=== PATIENT | female | born 1930 | race Caucasian/White ===

== ENCOUNTER 2018-06-18 18:53 | Observation (INO) ==
[2018-06-18] MEDS ORDERED: SALINE FLUSH 10ml SYRINGE IVF PRN (19:25)
--- NOTE | 2018-06-18 19:49 | Emergency Department Report ---
Weakness HPI - General Chief complaint: Recheck/Abnormal Lab/Rx Stated complaint: Low hemoglobin Time Seen by Provider: 06/18/18 19:25 Source: patient, family, RN notes reviewed, old records reviewed Mode of arrival: ambulatory Limitations: no limitations - History of Present Illness HPI Narrative: 87yo woman is presented to the ER for evaluation of weakness. Pt was seen recently by her PCM and labs were ordered showing anemia (after a shoulder repair with ortho). She had a repeat drawn today, in anticipation of seeing her clothes presser; because it was lower, pt was referred to the ER for further evaluation. Pt has no c/o. Denies hematemesis/hematochezia. Is taking xarelto. Complaint: generalized weakness, lack of energy Onset (ago): hour(s) Duration: constant Location: generalized - Related Data Home Medications Medication Instructions Recorded Confirmed Nitroglycerin 0.4 mg SL Q5MIN PRN #0 06/24/11 06/18/18 Chlorthalidone 12.5 mg PO DAILY #0 09/23/16 06/18/18 Atorvastatin [Lipitor] 20 mg PO DAILY 11/05/17 06/18/18 Calcium Carbonate/Vitamin D3 1 tab PO BID 11/05/17 06/18/18 [Calcium 600 + Vit D Tablet] Levocetirizine [Xyzal] 5 mg PO DAILY 11/05/17 06/18/18 Lisinopril [Prinivil] 2.5 mg PO DAILY 11/05/17 06/18/18 Magnesium Oxide [Magox] 400 mg PO BID 11/05/17 06/18/18 Metoprolol Tartrate [Lopressor] 12.5 mg PO BID 11/05/17 06/18/18 Multivitamin [One Daily] 1 each PO DAILY 11/05/17 06/18/18 Rivaroxaban [Xarelto] 20 mg PO PM 11/05/17 06/18/18 Trazodone [Desyrel] 50 mg PO HS 11/05/17 06/18/18 EPINEPHrine [Epipen 2-Tayo] 1 syringe SQ PRN 02/06/18 06/18/18 Acetaminophen [Tylenol Arthritis] 650 - 1,300 mg PO Q8H PRN 06/18/18 06/18/18 Cholecalciferol (Vitamin D3) 2,000 unit PO BID 06/18/18 06/18/18 [Vitamin D3] Citalopram [Celexa] 40 mg PO DAILY 06/18/18 06/18/18 Docusate Sodium 100 mg PO DAILY 06/18/18 06/18/18 Lactobacillus [Culturelle] 1 cap PO DAILY 06/18/18 06/18/18 Levothyroxine Tab [Synthroid] 75 mcg PO ACB 06/18/18 06/18/18 Omeprazole [Prilosec] 20 mg PO DAILY 06/18/18 06/18/18 Tramadol [Ultram] 50 mg PO Q8H PRN 06/18/18 06/18/18 Allergies Allergy/AdvReac Type Severity Reaction Status Date / Time iodine Allergy Severe HIVES Verified 06/18/18 20:07 Penicillins Allergy Intermediate HIVES Verified 06/18/18 20:07 acetaminophen [From [place]] Allergy Unknown Verified 06/18/18 20:07 hydrocodone [From [place]] Allergy Unknown Verified 06/18/18 20:07 Iodinated Contrast- Oral and Allergy Unknown Verified 06/18/18 20:07 IV Dye nut - unspecified Allergy Unknown Verified 06/18/18 20:07 HAZELNUTS Allergy Unknown CANNOT Uncoded 03/11/18 14:26 BREATH WATERMELLON Allergy Unknown CANNOT Uncoded 03/11/18 14:26 BREATH Review of Systems All systems: reviewed and negative except as stated Constitutional: Reports: as per HPI, weakness. Denies: fever, chills, weight change, night sweats Hematological/Lymphatic: Reports: as per HPI, other (Lower-extremity swelling) [facility] Patient Stated Medical History Cataracts Yes Other HEENT Yes: wears glasses Hypertension Yes Diabetes Mellitus Type 2 Yes Anemia Yes Other Hematologic Yes: taking xeralto Osteoarthritis Yes MRSA Yes: face [facility] Medical History (Last Reviewed 03/11/18 @ 16:50 by GARETH Breen) Kidney disease (Chronic Medical) Type 2 diabetes mellitus (Chronic Medical) MRSA (methicillin resistant staph aureus) culture positive (Chronic Medical) Arthritis (Chronic Medical) Heart disease (Chronic Medical) Pacemaker (Chronic Medical) Thyroid disease (Chronic Medical) Surgical History: Lt shoulder fx 3-24-18. Rt shoulder fx & repair Family History: Family History (Last Reviewed 03/11/18 @ 16:50 by GARETH Breen) Mother Stroke Father Stroke Heart attack - Social History Smoking status: Never smoker Current occupational status: retired Physical Exam - Limitations Limitations: no limitations - General General appearance: alert, in no apparent distress, obese - Normal Exams: Head:: Normocephalic without trauma Eyes:: Pupils are PERRLA w/ EOMI, No scleral icterus, irritation, or foreign bodies noted ENMT:: No facial trauma, nasal exudates, pharyngeal erythema, or exudates are noted Neck:: Full range of motion, without adenopathy Lymphatic:: No lymphadenopathy Musculoskeletal:: No tenderness, or deformity noted Integumentary:: No rashes, hives, or bruising noted Neurological:: Patient is alert, and oriented, cranial nerves, motor/sensory/ cerebellar, exams w/o gross deficits Psychiatric:: Patient exhibits, appropriate attention - Chest Chest inspection: Present: normal inspection, symmetric chest wall rise. Absent : tenderness, rash - Respiratory Respiratory exam: Present: normal lung sounds bilaterally. Absent: respiratory distress, wheezes, stridor, prolonged expiratory phase, crackles - Cardiovascular Cardiovascular exam: Present: regular rate, normal rhythm, systolic murmur. Absent: diastolic murmur, rubs, gallop, clicks - Abdominal Exam Abdominal exam: Present: soft, normal bowel sounds. Absent: distention, tenderness, guarding, rebound, rigidity - Extremities Exam Extremities exam: Present: full ROM, normal capillary refill, pedal edema (B/l; improved with elevation and diuretic). Absent: normal inspection, tenderness Course - Consultations Consultation #1: [place] Telemed: Will admit for overnight obs and txfusion of 1unit PRBCs for h/o CAD and stenting. Time: 20:41 Vital Signs Temperature 97.9 F 06/18/18 19:15 Pulse Rate 64 06/18/18 19:15 Respiratory Rate 20 06/18/18 19:15 Blood Pressure 115/58 06/18/18 19:15 Pulse Oximetry 93 06/18/18 19:15 Temperature 97.9 F 06/18/18 19:15 Pulse Rate 64 06/18/18 19:15 Respiratory Rate 20 06/18/18 19:15 Blood Pressure 115/58 06/18/18 19:15 Pulse Oximetry 93 06/18/18 19:15 Weakness - MDM Narrative Medical decision making narrative: Pt with low H/H. H/o CAD and stent. Tele-hospitalist will admit overnight for 1unit PRBC. - Differential Diagnosis Differential diagnosis: Likely: acute myocardial infarction, anemia, hypoglycemia, hypothyroidism, dehydration. Unlikely: rhabdomyolysis, sepsis - Medical Records Attestation: I reviewed the patient's medical records. - Lab Data Attestation: I reviewed the patient's lab results. Result diagrams: 06/18/18 19:39 06/18/18 19:39 Lab Results 06/18/18 06/18/18 06/18/18 Range/Units 19:39 19:39 19:39 WBC 9.5 (4.5-11.0) T/MM3 RBC 3.07 L (4.00-5.20) M/MM3 Hgb 7.8 L (12-16) GM/DL Hct 25.8 L (36-46) % MCV 84.0 (80-100) UM3 MCH 25.4 L (26-34) UUG MCHC 30.2 L (31-37) GM/DL RDW Std Deviation 46.9 (36.9-50.2) FL Plt Count 352 (130-400) T/MM3 MPV 10.0 (9.4-12.4) UM3 Neutrophils % (Manual) 65.0 (33-66) % Lymphocytes % (Manual) 24.0 (23-45) % Reactive Lymphs % 1.0 H (0-0) % Monocytes % (Manual) 5.0 (0-9.0) % Eosinophils % (Manual) 4.0 (0-4) % Myelocytes % 1.0 H (0-0) % Neutrophils # (Manual) 6.2 (1.8-7.7) T/MM3 Lymphocytes # (Manual) 2.3 (1-4.8) T/MM3 Abs React Lymphs (Man) 0.1 H (0-0) T/MM3 Monocytes # (Manual) 0.5 (0-0.8) T/MM3 Eosinophils # (Manual) 0.4 (0-0.5) T/MM3 Myelocytes # 0.1 T/MM3 Polychromasia 1+ Poikilocytosis 1+ Anisocytosis 1+ RBC Morph Comment Abnormal INR 1.72 H (0.92-1.18) APTT 32.1 (24-36) SEC Turbidity < 20 (0-20) Sodium 142 (136-146) MEQ/L Potassium 4.6 (3.6-5) MEQ/L Chloride 107 (98-107) MEQ/L Carbon Dioxide 25 (22-30) MEQ/L Anion Gap 10 (5-15) meq/L BUN 38.0 H (7-17) MG/DL Creatinine 1.4 H D (0.7-1.2) mg/dL Estimated Creat Clear 28 (>50) mL/min GFR Calculation 36 (>60) mL/min BUN/Creatinine Ratio 27 H (6-26) RATIO Glucose 148 H (65-110) MG/DL Calculated Osmolality 285 H (261-280) MOSM/KG Calcium 9.3 (8.4-10.2) MG/DL Total Bilirubin 0.50 (0.20-1.30) MG/DL Icterus Index < 2 (0-7) AST 25 (14-36) U/L ALT 13 (1-35) U/L Alkaline Phosphatase 73 (38-126) U/L Troponin I < 0.012 (0-0.12) ng/ml Total Protein 6.8 (6.3-8.2) g/dL Albumin 3.9 (3.5-5.0) g/dL Globulin 2.9 (2.4-3.6) G/DL Albumin/Globulin Ratio 1.3 (1.1-2.2) RATIO Specimen Hemolysis 21 (0-25) Blood Type Antibody Screen 06/18/18 Range/Units 19:39 WBC (4.5-11.0) T/MM3 RBC (4.00-5.20) M/MM3 Hgb (12-16) GM/DL Hct (36-46) % MCV (80-100) UM3 MCH (26-34) UUG MCHC (31-37) GM/DL RDW Std Deviation (36.9-50.2) FL Plt Count (130-400) T/MM3 MPV (9.4-12.4) UM3 Neutrophils % (Manual) (33-66) % Lymphocytes % (Manual) (23-45) % Reactive Lymphs % (0-0) % Monocytes % (Manual) (0-9.0) % Eosinophils % (Manual) (0-4) % Myelocytes % (0-0) % Neutrophils # (Manual) (1.8-7.7) T/MM3 Lymphocytes # (Manual) (1-4.8) T/MM3 Abs React Lymphs (Man) (0-0) T/MM3 Monocytes # (Manual) (0-0.8) T/MM3 Eosinophils # (Manual) (0-0.5) T/MM3 Myelocytes # T/MM3 Polychromasia Poikilocytosis Anisocytosis RBC Morph Comment INR (0.92-1.18) APTT (24-36) SEC Turbidity (0-20) Sodium (136-146) MEQ/L Potassium (3.6-5) MEQ/L Chloride (98-107) MEQ/L Carbon Dioxide (22-30) MEQ/L Anion Gap (5-15) meq/L BUN (7-17) MG/DL Creatinine (0.7-1.2) mg/dL Estimated Creat Clear (>50) mL/min GFR Calculation (>60) mL/min BUN/Creatinine Ratio (6-26) RATIO Glucose (65-110) MG/DL Calculated Osmolality (261-280) MOSM/KG Calcium (8.4-10.2) MG/DL Total Bilirubin (0.20-1.30) MG/DL Icterus Index (0-7) AST (14-36) U/L ALT (1-35) U/L Alkaline Phosphatase (38-126) U/L Troponin I (0-0.12) ng/ml Total Protein (6.3-8.2) g/dL Albumin (3.5-5.0) g/dL Globulin (2.4-3.6) G/DL Albumin/Globulin Ratio (1.1-2.2) RATIO Specimen Hemolysis (0-25) Blood Type A Positive Antibody Screen Negative - Radiology Data Attestation: I reviewed the patient's radiology results. CT abd/pelv: IMPRESSION: No hematoma identified to explain the patient's low hematocrit. No acute pathology of the abdomen and pelvis. Disposition Clinical Impression: Anemia Qualifiers: Anemia type: unspecified type Qualified Code(s): D64.9 - Anemia, unspecified CRF (chronic renal failure) Qualifiers: Chronic kidney disease stage: stage 4 (severe) Qualified Code(s): N18.4 - Chronic kidney disease, stage 4 (severe) Disposition: [facility] Print Language: Turkish Condition: Stable Prescriptions: No Action Chlorthalidone 12.5 mg PO DAILY #0 Levocetirizine [Xyzal] 5 mg PO DAILY Metoprolol Tartrate [Lopressor] 12.5 mg PO BID Lisinopril [Prinivil] 2.5 mg PO DAILY Multivitamin [One Daily] 1 each PO DAILY Trazodone [Desyrel] 50 mg PO HS Rivaroxaban [Xarelto] 20 mg PO PM Calcium Carbonate/Vitamin D3 [Calcium 600 + Vit D Tablet] 1 tab PO BID EPINEPHrine [Epipen 2-Tayo] 1 syringe SQ PRN Lactobacillus [Culturelle] 1 cap PO DAILY Docusate Sodium 100 mg PO DAILY Citalopram [Celexa] 40 mg PO DAILY Cholecalciferol (Vitamin D3) [Vitamin D3] 2,000 unit PO BID Acetaminophen [Tylenol Arthritis] 650 - 1,300 mg PO Q8H PRN PRN Reason: Pain Tramadol [Ultram] 50 mg PO Q8H PRN PRN Reason: Pain Nitroglycerin 0.4 mg SL Q5MIN PRN #0 PRN Reason: CHEST PAIN Atorvastatin [Lipitor] 20 mg PO DAILY Magnesium Oxide [Magox] 400 mg PO BID Omeprazole [Prilosec] 20 mg PO DAILY Levothyroxine Tab [Synthroid] 75 mcg PO ACB Referrals: Lauryn Woodson MD [Primary Care Provider] - Time of Disposition: 20:52 - Seen By: physician
[2018-06-18] MEDS ORDERED: NS 1,000 ML IV SCH (21:39)
[2018-06-18] MEDS ORDERED: ONDANSETRON 4 MG/2 ML INJECTION IVP PRN (21:39)
[2018-06-18] MEDS ORDERED: NS FLUSH BAG 500ml IV PRN (21:39)
[2018-06-18] MEDS ORDERED: TRAZODONE 50 MG TABLET PO SCH (21:39)
[2018-06-18 21:44] VITALS: BMI 32.9
--- NOTE | 2018-06-18 22:20 | History & Physical Report ---
History of Present Illness Date: 06/23/18 Chief complaint: fatigue HPI: Patient was seen via telemedicine with nursing assistance on 06/18/2018 Ms. Darby is a pleasant 87yo woman with h/o CAD s/p stent, pacer, HTN, dyslipidemia, hypothyroidism, CKD3 and orthopedic surgery in March with hgb then 7.5 with no definite transfusion then. On Xarelto but no dark stools or stool change with last BM today. She nor her daughter recognize reason fro Xarelto such as afib or DVT/PE. No CP or sob, but more fatigued recently, and support services rep checked hgb with 7.8 called to patient today. With this and her symptoms she was referred to the ED. Does not know of prior transfusion or iron supp. Daughter at the bedside assisting with hx. Review of Systems All systems PM: 10-point ROS was reviewed, no additional remarkable complaints except Past Medical History Medical History: Medical History (Last Reviewed 03/11/18 @ 16:50 by GARETH Breen) Kidney disease (Chronic) Type 2 diabetes mellitus (Chronic) MRSA (methicillin resistant staph aureus) culture positive (Chronic) Arthritis (Chronic) Heart disease (Chronic) Pacemaker (Chronic) Thyroid disease (Chronic) Surgical History: Lt shoulder fx 3-18. Rt shoulder fx & repair Family History: Family History (Last Reviewed 03/11/18 @ 16:50 by GARETH Breen) Mother Stroke Father Stroke Heart attack Family History Updates: mother of bleeding in her 60s, father in 60s from CAD and CVA Family History: As Above - Social History Smoking status: Never smoker Substance use type: does not use Housing: other (went to assisted living yesterday after rehab) Medications Home Medications Medication Instructions Recorded Confirmed Type Nitroglycerin 0.4 mg SL Q5MIN PRN #0 06/24/11 06/18/18 History Chlorthalidone 12.5 mg PO DAILY #0 09/23/16 06/18/18 History Atorvastatin [Lipitor] 20 mg PO DAILY 11/05/17 06/18/18 History Calcium Carbonate/Vitamin D3 1 tab PO BID 11/05/17 06/18/18 History [Calcium 600 + Vit D Tablet] Levocetirizine [Xyzal] 5 mg PO DAILY 11/05/17 06/18/18 History Lisinopril [Prinivil] 2.5 mg PO DAILY 11/05/17 06/18/18 History Magnesium Oxide [Magox] 400 mg PO BID 11/05/17 06/18/18 History Metoprolol Tartrate [Lopressor] 12.5 mg PO BID 11/05/17 06/18/18 History Multivitamin [One Daily] 1 each PO DAILY 11/05/17 06/18/18 History Rivaroxaban [Xarelto] 20 mg PO PM 11/05/17 06/18/18 History Trazodone [Desyrel] 50 mg PO HS 11/05/17 06/18/18 History EPINEPHrine [Epipen 2-Tayo] 1 syringe SQ PRN 02/06/18 06/18/18 History Acetaminophen [Tylenol Arthritis] 650 - 1,300 mg PO Q8H PRN 06/18/18 06/18/18 History Cholecalciferol (Vitamin D3) 2,000 unit PO BID 06/18/18 06/18/18 History [Vitamin D3] Citalopram [Celexa] 40 mg PO DAILY 06/18/18 06/18/18 History Docusate Sodium 100 mg PO DAILY 06/18/18 06/18/18 History Lactobacillus [Culturelle] 1 cap PO DAILY 06/18/18 06/18/18 History Levothyroxine Tab [Synthroid] 75 mcg PO ACB 06/18/18 06/18/18 History Omeprazole [Prilosec] 20 mg PO DAILY 06/18/18 06/18/18 History Tramadol [Ultram] 50 mg PO Q8H PRN 06/18/18 06/18/18 History Allergies Allergy/AdvReac Type Severity Reaction Status Date / Time iodine Allergy Severe HIVES Verified 06/18/18 20:07 Penicillins Allergy Intermediate HIVES Verified 06/18/18 20:07 hazelnut Allergy Unknown Difficulty Verified 06/19/18 06:34 Breathing hydrocodone [From [place]] Allergy Unknown Verified 06/18/18 20:07 Iodinated Contrast- Oral and Allergy Unknown Verified 06/18/18 20:07 IV Dye nut - unspecified Allergy Unknown Verified 06/18/18 20:07 watermelon Allergy Unknown Difficulty Verified 06/19/18 06:33 Breathing Exam Vital Signs: Temperature 98.0 F 06/18/18 21:39 Pulse Rate 60 06/18/18 21:39 Respiratory Rate 16 06/18/18 21:39 Blood Pressure 151/69 H 06/18/18 21:39 Pulse Oximetry 93 06/18/18 21:39 Telemetry Rhythm: Sinus Rhythm Height/Weight/BMI: Height 1.55 m Weight 79 kg Body Mass Index 32.9 - Constitutional Present: no acute distress - Routine HEENT Exam Head: Present: normocephalic, atraumatic Eye: Present: EOMI - Routine Respiratory Exam Present: CTA bilaterally - Routine Cardiovascular Exam Present: RRR, no murmur - Routine Abdominal Exam Present: soft, normoactive bowel sounds - Routine Extremities Exam Present: edema. Absent: cyanosis, clubbing Comments: 1+ bilateral edema (improved per daughter after recent REBECCA hose) - Routine Skin Exam Present: intact - Routine Neurological Exam Present: alert, oriented X3 Results - Labs CBC & Chem 7: 06/19/18 06:04 06/19/18 06:04 Assessment and Plan Assessment and Plan: 1. Symptomatic anemia-obs admit with 1 unit blood transfusion with 2. Normocytic so does not appear chronic, but with Xarelto beware GI loss. Perhaps more port ortho surgery and CKD3. Note other cell lineages fine. 2. CAD on metoprolol, statin. No asa currently. 3. T2D on diet 4. Essential HTN on chlorthalidone, lisinopril, metoprolol. Monitor. 5. Dyslipidemia on statin. 6. Hypothyroidism--check TSH and increase dose if TSH higher (could contribute to 1). 7. s/p pacer 8. CKD3 H & P above reviewed and agree. Please see H & P from 06/19/18. - Physician Narrative Narrative: Date: 06/18/18 Time: 2216 Hospital Course Summary Disclaimer: The visit summary below is not to be considered part of the above Progress Note.
[2018-06-19] MEDS ORDERED: OMEPRAZOLE 20 MG CAPSULE PO SCH (06:30)
[2018-06-19] MEDS ORDERED: LEVOTHYROXINE 75 MCG TABLET PO SCH (06:30)
[2018-06-19] MEDS ORDERED: CHLORTHALIDONE 25 MG TABLET PO SCH (08:00)
--- NOTE | 2018-06-19 08:15 | CT Scan Report ---
Indication: Anemia PROCEDURE: CT abdomen pelvis wo con: Encounter: Initial Comparison: September 09, 2016 Technique: Axial CT images were performed through the abdomen and pelvis without intravenous contrast. Coronal and sagittal two-dimensional reformats. Automated Exposure Control and Iterative Reconstruction dose reducing techniques were utilized. Findings: Lung bases are grossly clear. Left basilar scarring. The unenhanced contours of the liver are unremarkable. Gallbladder is contracted. The spleen, pancreas and adrenal glands are within normal limits. Right renal cyst. No abdominal or pelvic lymphadenopathy. Bladder is normal. Uterus is unremarkable. No free fluid. No evidence of a bowel obstruction. A portion of the sigmoid colon distally is decompressed and not well evaluated. Bone windows show degenerative change in the hips and spine with bony demineralization. No free fluid or hemorrhage seen. 4cm linear metallic foreign body seen in the left anterior pelvic subcutaneous fat. Impression: No acute disease process seen in the abdomen or pelvis. There is a preliminary report by [facility]. .
[2018-06-19] MEDS ORDERED: LISINOPRIL 2.5 MG TABLET PO SCH (09:00)
[2018-06-19] MEDS ORDERED: CITALOPRAM 40 MG TABLET PO SCH (09:00)
--- NOTE | 2018-06-19 10:02 | History & Physical Report ---
History of Present Illness Date: 06/19/18 Chief complaint: anemia HPI: Per teledoc 06/18/2018: Ms. Darby is a pleasant 87yo woman with h/o CAD s/p stent, pacer, HTN, dyslipidemia, hypothyroidism, CKD3 and orthopedic surgery in March with hgb then 7.5 with no definite transfusion then. On Xarelto but no dark stools or stool change with last BM today. She nor her daughter recognize reason fro Xarelto such as afib or DVT/PE. No CP or sob, but more fatigued recently, and hog counter checked hgb with 7.8 called to patient today. With this and her symptoms she was referred to the ED. Does not know of prior transfusion or iron supp. Daughter at the bedside assisting with hx. As above. Patient seen this am after breakfast. She reports she is feeling better. She is hopeful to go back to assisted living as soon as she can be discharged. States she saw Dr. Radha Gallagher last Friday and he was following her hgb. He had recommended she come in for transfusion. Confirmed with cardiology the patient is on Xarelto since October 2017 for paroxysmal atrial fibrillation. As discussed above, she denies any dark stools or change in stools. Her abdominal CT performed in the ED was negative Review of Systems All systems PM: 10-point ROS was reviewed, no additional remarkable complaints except (negative) Past Medical History Medical History: Medical History (Last Reviewed 03/11/18 @ 16:50 by GARETH Breen) Kidney disease (Chronic) Type 2 diabetes mellitus (Chronic) MRSA (methicillin resistant staph aureus) culture positive (Chronic) Arthritis (Chronic) Heart disease (Chronic) Pacemaker (Chronic) Thyroid disease (Chronic) Medical History Updates: GERD, depression, Insomnia, CKD (III) Surgical History: Lt shoulder fx 02-07-18 - repair 04/08/18 - Dr Dimas. Rt shoulder fx & repair. Pacemaker 2010. Cardiac stent 2016 Family History: Family History Stroke Father Stroke Heart attack Family History Updates: mother of bleeding in her 60s, father in 60s from CAD and CVA Family History: As Above - Social History Smoking status: Never smoker Substance use type: does not use Alcohol intake frequency: does not drink Housing: assisted living facility ([facility]) Current occupational status: retired Social history: Pt is . PCP -Dr. Woodson Neph - Dr. Radha Gallagher Stock Patcher - Dr. Ramirez Medications Home Medications Medication Instructions Recorded Confirmed Type Nitroglycerin 0.4 mg SL Q5MIN PRN #0 06/24/11 06/18/18 History Chlorthalidone 12.5 mg PO DAILY #0 09/23/16 06/18/18 History Atorvastatin [Lipitor] 20 mg PO DAILY 11/05/17 06/18/18 History Calcium Carbonate/Vitamin D3 1 tab PO BID 11/05/17 06/18/18 History [Calcium 600 + Vit D Tablet] Levocetirizine [Xyzal] 5 mg PO DAILY 11/05/17 06/18/18 History Lisinopril [Prinivil] 2.5 mg PO DAILY 11/05/17 06/18/18 History Magnesium Oxide [Magox] 400 mg PO BID 11/05/17 06/18/18 History Metoprolol Tartrate [Lopressor] 12.5 mg PO BID 11/05/17 06/18/18 History Multivitamin [One Daily] 1 each PO DAILY 11/05/17 06/18/18 History Rivaroxaban [Xarelto] 20 mg PO PM 11/05/17 06/18/18 History Trazodone [Desyrel] 50 mg PO HS 11/05/17 06/18/18 History EPINEPHrine [Epipen 2-Tayo] 1 syringe SQ PRN 02/06/18 06/18/18 History Acetaminophen [Tylenol Arthritis] 650 - 1,300 mg PO Q8H PRN 06/18/18 06/18/18 History Cholecalciferol (Vitamin D3) 2,000 unit PO BID 06/18/18 06/18/18 History [Vitamin D3] Citalopram [Celexa] 40 mg PO DAILY 06/18/18 06/18/18 History Docusate Sodium 100 mg PO DAILY 06/18/18 06/18/18 History Lactobacillus [Culturelle] 1 cap PO DAILY 06/18/18 06/18/18 History Levothyroxine Tab [Synthroid] 75 mcg PO ACB 06/18/18 06/18/18 History Omeprazole [Prilosec] 20 mg PO DAILY 06/18/18 06/18/18 History Tramadol [Ultram] 50 mg PO Q8H PRN 06/18/18 06/18/18 History Allergies Allergy/AdvReac Type Severity Reaction Status Date / Time iodine Allergy Severe HIVES Verified 06/18/18 20:07 Penicillins Allergy Intermediate HIVES Verified 06/18/18 20:07 hazelnut Allergy Unknown Difficulty Verified 06/19/18 06:34 Breathing hydrocodone [From [place]] Allergy Unknown Verified 06/18/18 20:07 Iodinated Contrast- Oral and Allergy Unknown Verified 06/18/18 20:07 IV Dye nut - unspecified Allergy Unknown Verified 06/18/18 20:07 watermelon Allergy Unknown Difficulty Verified 06/19/18 06:33 Breathing Exam Vital Signs: Temperature 97.7 F 06/19/18 08:05 Pulse Rate 62 06/19/18 08:05 Respiratory Rate 16 06/19/18 08:05 Blood Pressure 142/66 H 06/19/18 08:05 Pulse Oximetry 94 06/19/18 08:05 Height/Weight/BMI: Height 1.55 m Weight 78.1 kg Body Mass Index 32.9 - Constitutional Present: no acute distress, well nourished, well developed - Routine HEENT Exam Head: Present: normocephalic, atraumatic Eye: Present: normal accommodation. Absent: scleral injection ENT: Present: mucous membranes moist, oropharynx clear - Routine Neck Exam Present: supple. Absent: lymphadenopathy, thyromegaly - Routine Respiratory Exam Present: CTA bilaterally. Absent: wheezes - Routine Cardiovascular Exam Present: RRR, no murmur - Routine Abdominal Exam Present: soft, normoactive bowel sounds. Absent: tenderness, distended - Routine Extremities Exam Present: no edema, normal capillary refill - Routine Skin Exam Present: dry, warm - Routine Neurological Exam Present: alert, oriented X3, CN II-XII intact - Routine Psychiatric Exam Present: normal affect, cooperative Results - Labs CBC & Chem 7: 06/19/18 06:04 06/19/18 06:04 - Imaging and Cardiology CT scan - abdomen Additional comments: Date of Exam: 06/18/18 Indication: Anemia PROCEDURE: CT abdomen pelvis wo con: Findings: Lung bases are grossly clear. Left basilar scarring. The unenhanced contours of the liver are unremarkable. Gallbladder is contracted. The spleen, pancreas and adrenal glands are within normal limits. Right renal cyst. No abdominal or pelvic lymphadenopathy. Bladder is normal. Uterus is unremarkable. No free fluid. No evidence of a bowel obstruction. A portion of the sigmoid colon distally is decompressed and not well evaluated. Bone windows show degenerative change in the hips and spine with bony demineralization. No free fluid or hemorrhage seen. 4cm linear metallic foreign body seen in the left anterior pelvic subcutaneous fat. Impression: No acute disease process seen in the abdomen or pelvis. Assessment and Plan Assessment and Plan: Assessment Symptomatic anemia, normocytic. Coronary artery disease (S/P stent placement 2015) Type 2 diabetes, diet-controlled Essential hypertension Dyslipidemia Hypothyroidism Chronic kidney disease stage III Paroxysmal Atrial fibrillation - started on Xarelto October 2017 (Dr. Ramirez) GERD Osteoarthritis Insomnia Depression Plan Patient admitted for observation for blood transfusion-1 unit PRBCs. Hemoglobin 7.8 --> 9.0. Patient feeling better this morning and wishes to go home. Discussed with Dr. Gallagher. He does not believe her anemia is caused by her kidney disease. Recommends Dr. Woodson proceed with iron deficiency anemia workup. Patient declines dark or bloody stools or abdominal pain. CT scan abdomen/ pelvis was negative. Will defer to Dr. Woodson as to if she recommends further GI investigation in workup of anemia. Vitals and labs are stable. 06/19/2018-12:30 PM-I examined the patient independently. I reviewed this chart , the patient history, and the [employer]'s/PA's documented findings as above. We discussed and formulated the assessment and plan as above with the additions below.-Dr. Betancur The patient states that she had routine lab work that showed anemia. She was feeling kind of fatigued but denied chest pain, chest tightness, or shortness of breath. She was directed to the emergency room and underwent CT abdomen which showed no significant abnormalities. She denies any abdominal pain. She denies any nausea or vomiting. Her appetite has been good. She does not take any NSAIDs. She states she looks at her bowel movements every day and they have not been black or bloody. On exam she is alert and oriented 3 and in no acute distress. Chest is clear to auscultation. Cardiovascular reveals a regular rate and rhythm. Abdomen is soft and nontender with positive bowel sounds. Extremities are free of edema. The patient was placed on oxygen last night but denies feeling short of breath. When I went in to see the patient she was sitting up in her recliner and oxygen saturation was 97% on room air Lab today shows creatinine is 1.1 down from 1.4. This is likely secondary to IV fluids. BUNs 29 down from 38. Hemoglobin is 9 up from 7.8. Platelets are normal. INR was moderately elevated secondary to Xarelto Iron is 16 which is low. Ferritin is 14 which is low normal (normal range 11-264 ). Vitamin B-12 is 362. Folate is greater than 20. Impression Symptomatic normocytic anemia-symptoms resolved post transfusion. No signs or symptoms of acute GI bleed. No NSAID use. Borderline iron deficiency Chronic anticoagulation with Xarelto for history of A. fib CKD-stable Plan Overall, the patient is feeling better. We'll discontinue IV fluids. Discuss with the patient's primary care provider. Likely dismiss to home with anemia workup as an outpatient. DVT Prophylaxis: Xarelto Resuscitation Status: Full Code - Physician Narrative Physician: Latia Betancur MD Narrative: Date: 06/19/18 Time: 0931 Hospital Course Summary Disclaimer: The visit summary below is not to be considered part of the above Progress Note. Addendum entered and electronically signed by GARETH Berger 06/19/18 15:02 : Case is discussed with Dr. Woodson who recommends patient to have IV iron started today. She will order fecal Hemoccults x3 to be performed when patient is back at as [facility]. She will also arrange to have a CBC performed in one week and a follow-up appointment with her. I discussed the iron infusion with Dr. Gallagher who recommends Ferrlecit 150 mg IV 2 times a week for a total of 4 infusions. Her first infusion was performed prior to dismissal today. She is discharged back to assisted living at [facility] today.
[2018-06-19] MEDS ORDERED: SODIUM FERRIC GLUC COMPLEX IV SCH (13:15)
[2018-06-19] MEDS ORDERED: NS IV SCH (13:15)
[2018-06-19 14:04] VITALS: PULSE 60
[2018-06-19 15:07] VITALS: BP 144/68; RESP 16; TEMP 98.7; O2SAT 94
[2018-06-19] MEDS ORDERED: RIVAROXABAN 20 MG TABLET PO SCH (17:30)
[2018-06-19] MEDS ORDERED: ATORVASTATIN 20 MG TABLET PO SCH (21:00)
== END 2018-06-19 15:52 | disposition home or self-care (01) ==
LOC: ED 18:53 → EDHOLD 18:53 → MED 21:30
PROVIDERS: ADMIT Hospitalist; ATTEND Internal Medicine